=== PATIENT | female | born 1995 | race Caucasian/White ===

== ENCOUNTER 2021-02-01 10:33 | Emergency (ER) | payer OTHER ==
[2021-02-01 11:03] VITALS: BP 111/79; PULSE 98; TEMP 97.3; BMI 24.3
== END 2021-02-01 11:43 | disposition home or self-care (01) ==
LOC: JCOVINFU 10:33 → JER 10:33 → JCOVINFU 11:43
DX: U07.1 COVID-19 (principal)
CPT/HCPCS: 99281-25